=== PATIENT | male | born 1950 | race Caucasian/White ===

== ENCOUNTER 2022-11-22 05:35 | Inpatient (IN) | payer MEDICARE, BC ==
[2022-11-20 13:25] LABS: BASOPHILS # (AUTO) 0.1 X10'3 (0-0.2); BASOPHILS % (AUTO) 0.5 % (0-1); EOSINOPHILS # (AUTO) 0.2 X10'3 (0-0.9); EOSINOPHILS % (AUTO) 2.4 % (0-6); LYMPHOCYTES # (AUTO) 1.4 X10'3 (1.1-4.8); LYMPHOCYTES % (AUTO) 13.9 % (21-51); MEAN CORPUSCULAR HEMOGLOBIN 29.6 PG (27.0-31.0); MEAN CORPUSCULAR HGB CONC 33.5 g/dL (33.0-36.5); MEAN CORPUSCULAR VOLUME 88.4 FL (78-98); MEAN PLATELET VOLUME 7.3 FL (7.4-10.4); MONOCYTES % (AUTO) 9.9 % (2-12); NEUTROPHILS # (AUTO) 7.5 X10'3 (1.8-7.7); NEUTROPHILS % (AUTO) 73.3 % (42-75); PRE OP HEMATOCRIT 42.6 % (42.0-52.0); PRE OP HEMOGLOBIN 14.3 g/dL (14.0-17.9); PRE OP PLATELET COUNT 208 X10'3 (140-440); RED BLOOD COUNT 4.82 X10'6 (4.70-6.10); RED CELL DISTRIBUTION WIDTH 13.7 % (11.5-14.5)
[2022-11-20 13:42] LABS: PRE OP PROTIME 10.6 SECONDS (9.0-12.0)
[2022-11-20 13:52] LABS: ALBUMIN 3.6 G/DL (3.4-5.0); ALBUMIN/GLOBULIN RATIO 1.2 (1.1-1.5); ALKALINE PHOSPHATASE 78 IU/L (46-116); BLOOD UREA NITROGEN 15 MG/DL (7-18); CALCIUM 8.7 MG/DL (8.5-10.1); CHLORIDE 104 MMOL/L (99-107); CREATININE 0.94 MG/DL (0.60-1.10); PRE OP ALT 40 U/L (30-65); PRE OP ANION GAP 7 (8-16); PRE OP AST 21 U/L (10-37); PRE OP BILIRUB, TOTAL 0.4 MG/DL (0.0-1.0); PRE OP GLUCOSE 142 MG/DL (70-104); PRE OP POTASSIUM 4.3 MMOL/L (3.4-5.1); PRE OP SODIUM 138 MMOL/L (135-145); TOTAL CARBON DIOXIDE 26.9 MMOL/L (24-32); TOTAL PROTEIN 6.7 G/DL (6.4-8.2); eGFR 79 ML/MIN
[2022-11-22] VITALS (31 sets, daily range): BP systolic 109–164; BP diastolic 48–87
[~2022-11-22] VITALS: Ht 177.8 cm; Wt 113.7 kg
[~2022-11-22 05:35] MED LIST: ALFU10TA PO; ASPI-611 PO; FINA5TAB11 PO; LISI5TAB22 PO; ROSU40TA PO; ceFAZolin inj. 2,000 MG in dextrose 5%-water 100 ML IV ONE; famotidine 20mg tablet PO ONE; metoprolol tartrate 12.5mg (1/2 tablet) PO ONE; nitroPRUSSIDE 0.2mg/mL in NS 250 ML IV SCH; phenylephrine inj 50 MG in normal saline 250ml IV solN IV SCH; ringers solution, lacted 1,000 ML IV SCH
[2022-11-22] MEDS ORDERED: heparin 10,000 units/1 ML INJ ONE (06:42)
[2022-11-22] MEDS ORDERED: LIDOcaine 1% 30ml preserv. free vial ONE (06:48)
--- NOTE | 2022-11-22 07:25 | NUR ---
ROMINA RENDON NOTIFIED OF PT HR OF 60. VERBAL ORDER RECEIVED TO HOLD METOPROLOL.
[2022-11-22] MEDS ORDERED: midazolam 1 mg/ML 2ml injection ONE (07:26)
[2022-11-22] MEDS ORDERED: fentaNYL /PF 50mcg/ml 5ml ampule ONE (07:27)
[2022-11-22] MEDS ORDERED: ondansetron/PF 4mg/2ml inj IV PRN ×2 (07:40→09:35)
[2022-11-22] MEDS ORDERED: acetaminophen 1,000mg/100ml IV 100 ML IV PRN (07:40)
[2022-11-22] MEDS ORDERED: morphine 2 MG/ML inj. syringe IV PRN (07:40)
[2022-11-22] MEDS ORDERED: meperidine/PF 25mg/ml syringe IV PRN ×3 (07:40)
[2022-11-22] MEDS ORDERED: proCHLORperazine 10 MG/2 ml inj IV PRN (07:40)
[2022-11-22] MEDS ORDERED: ketorolac trometh. 30mg/ml inj. IV ONE (07:40)
[2022-11-22] MEDS ORDERED: ringers solution, lacted 1,000 ML IV SCH (07:40)
[2022-11-22] MEDS ORDERED: labetalol 20mg/4ml (5mg/ml) syringe IV PRN (07:40)
[2022-11-22] MEDS ORDERED: LIDOcaine 1% (10mg/ml) 2ml vial ONE (07:51)
[2022-11-22] MEDS ORDERED: sevoflurane 250ml liquid IH ONE (07:57)
[2022-11-22] MEDS ORDERED: ondansetron/PF 4mg/2ml inj ONE (08:29)
[2022-11-22] MEDS ORDERED: LIDOcaine 2% (20mg/ml) 5ml vial ONE (08:29)
[2022-11-22] MEDS ORDERED: propofol inj 20 ML IV ONE (08:29)
[2022-11-22] MEDS ORDERED: ePHEDrine 50MG/ML INJ. ONE (08:29)
[2022-11-22] MEDS ORDERED: rocuronium 10mg/ml inj IV ONE (08:29)
[2022-11-22] MEDS ORDERED: LIDOcaine 1%/PF 5ML 10 MG/ML VIAL ONE (08:29)
[2022-11-22] MEDS ORDERED: 0.9 % SODIUM CHLORIDE 10 ML VIAL ONE (08:29)
[2022-11-22] MEDS ORDERED: dexamethasone sod phosphate 4mg/ml inj. ONE (08:29)
[2022-11-22] MEDS ORDERED: protamine sulfate 10mg/ml inj. ONE (08:53)
[2022-11-22] MEDS ORDERED: neostigmine methylsulfate 1 MG/ML 10ml vial ONE (09:21)
[2022-11-22] MEDS ORDERED: glycopyrrolate 0.2mg/ml inj ONE (09:21)
[2022-11-22] MEDS ORDERED: heparin 1,000unit/ml 10ml vial 10 ML ONE (09:21)
[2022-11-22] MEDS ORDERED: labetalol 20mg/4ml (5mg/ml) syringe IV ONE (09:25)
[2022-11-22] MEDS ORDERED: albuterol 2.5 MG/3 ML nebule NEB PRN (09:35)
[2022-11-22] MEDS ORDERED: metoclopramide 5 mg/ml inj IV PRN (09:35)
[2022-11-22] MEDS ORDERED: naloxone 0.4 mg/ml inj IV PRN (09:35)
--- NOTE | 2022-11-22 09:38 | NUR ---
Received from OR via ICU BED , accompanied by Anesthesiologist LAVINIA and report given by Anesthesiolgist. PATIENT WITH WILLIE TO LEFT NECK THAT IS CDI. PAIN OF 7-10...WILL MEDICATE. PATIENT WITH EQUAL PUSH PULLS, INSURANCE VERIFY REP, SMILE IS SYMMETRICAL. 18G PIV IN IN RIGHT UE WELL ART LINE TO RIGHT UE. 10L [place] WITH 97% SATURATIONS. WILL TITRATE DRIPS AND AIM FOR 120-140 SBP PER SYLVIE VISION TEACHER. Addendum: 11/22/22 at 0947 by Alon Crisostomo RN, RN Amended: Links added.
[2022-11-22] MEDS: hydrALAZINE 20mg/ml inj. IV PRN ×2 (09:55→12:45)
[2022-11-22] MEDS: morphine 4 MG/ML inj SYRINge IV PRN ×2 (09:56→10:13)
--- NOTE | 2022-11-22 10:44 | NUR ---
PUSH PULLS ALL EQUAL. TONGUE MIDLINE AND SMILE STILL SYMMETRICAL. PAIN MUCH MORE TOLERABLE. Addendum: 11/22/22 at 1045 by Alon Crisostomo RN, RN Amended: Links added.
--- NOTE | 2022-11-22 11:18 | NUR ---
REPORT GIVEN AND ALL QUESTIONS ANSWERED. PATIENT TRANSFERRED TO ICU. LABELED BELONGINGS PRESENT AND DELIVERED TO ROOM. RN PRESENT ALL CRITERIA FOR TRANSFER TO THE ICU FLOOR HAS BEEN ACHIEVED. VSS. PAIN AT A TOLERABLE LEVEL. BED LOW, CALL LIGHT PRESENT AND 2 RAILS DOWN. RN CHARLY PRESENT AND ACCEPTING CARE OF PATIENT.ON E LABELED BAG OF BELONGINGS SENT WITH PATIENT. Addendum: 11/22/22 at 1130 by Alon Crisostomo RN RN Amended: Links added.
--- NOTE | 2022-11-22 11:20 | NUR ---
Pt received post op from left carotid enterectomy Awake and alert moving all extremities No neuro deficit noted Sl HTN on nipride gtt J P drain with sm amt of sero sang drainage Left neck soft no hematoma noted
--- NOTE | 2022-11-22 12:00 | NUR ---
Nipride infusing to keep sbp less then 160 sys trying to wean
[2022-11-22] MEDS ORDERED: nitroPRUSSIDE 0.2mg/mL in NS 250 ML IV SCH (12:05)
[2022-11-22] MEDS: HYDROcodone/acetaminophen 10/325mg tab PO PRN ×3 (12:44→23:58)
--- NOTE | 2022-11-22 12:44 | NUR ---
med with norco for c/o of headache Able to wean nipride gtt down hero full liq diet Left neck soft min drainage in WILLIE Neuro [facility]
--- NOTE | 2022-11-22 14:11 | NUR ---
Zack gtt off Headache gone Visiting with Neuro [facility] TROYS
--- NOTE | 2022-11-22 16:38 | NUR ---
Nakia d/c per Dr Contreras VSS Pt c/o of headache Neuro checks WNL
[2022-11-22] MEDS: ceFAZolin 1GM/D5W- ADD-VANTAGE 50 ML IV SCH (16:57)
[2022-11-22] MEDS ORDERED: lisinopril 5mg tablet PO ONE (17:15)
--- NOTE | 2022-11-22 17:29 | NUR ---
Med with htn med for sys 170 Also med for sl headache Neuro [facility]
--- NOTE | 2022-11-22 18:00 | NUR ---
UP TO CHAIR AND GEOFFREY WELL b/P WITHIN NORMAL LIMITS nO NEURO [facility] NOTED
--- NOTE | 2022-11-22 18:38 | NUR ---
rEPORT GIVEN TO ON COMING SHIFT
[2022-11-22] MEDS ORDERED: finasteride 5mg tablet PO SCH (21:00)
[2022-11-22] MEDS ORDERED: tamsulosin 0.4mg capsule PO SCH (21:00)
[2022-11-23] VITALS (10 sets, daily range): BP systolic 120–146; BP diastolic 53–76
[2022-11-23] MEDS: ceFAZolin 1GM/D5W- ADD-VANTAGE 50 ML IV SCH ×2 (01:12→08:18)
[2022-11-23 06:12] LABS: BASOPHILS % (AUTO) 0.1 % (0-1); EOSINOPHILS % (AUTO) 0 % (0-6); HEMOGLOBIN 12.9 g/dl (14.0-17.9); LYMPHOCYTES # (AUTO) 0.9 X10'3 (1.1-4.8); LYMPHOCYTES % (AUTO) 6.8 % (21-51); MEAN CORPUSCULAR HEMOGLOBIN 29.1 PG (27.0-31.0); MEAN CORPUSCULAR HGB CONC 33.1 g/dL (33.0-36.5); MEAN PLATELET VOLUME 7.4 FL (7.4-10.4); MONOCYTES # (AUTO) 1.1 X10'3 (0-0.9); MONOCYTES % (AUTO) 8.3 % (2-12); NEUTROPHILS # (AUTO) 11.2 X10'3 (1.8-7.7); NEUTROPHILS % (AUTO) 84.8 % (42-75); PLATELET COUNT 221 X10'3 (140-440); RED BLOOD COUNT 4.44 X10'6 (4.70-6.10); RED CELL DISTRIBUTION WIDTH 13.5 % (11.5-14.5); WHITE BLOOD COUNT 13.2 X10'3 (4.5-11.0)
[2022-11-23 06:22] LABS: ANION GAP 7 (8-16); BLOOD UREA NITROGEN 18 MG/DL (7-18); BUN/CREATININE RATIO 18.9 (5.4-32.0); CALCIUM 8.4 MG/DL (8.5-10.1); CHLORIDE 104 MMOL/L (99-107); CREATININE 0.95 MG/DL (0.60-1.10); GLUCOSE 143 MG/DL (70-104); POTASSIUM 4.2 MMOL/L (3.5-5.1); SODIUM 137 MMOL/L (135-145); TOTAL CARBON DIOXIDE 25.6 MMOL/L (24-32); eGFR 78 ML/MIN
[2022-11-23] MEDS ORDERED: CLOP-32 PO (07:47)
[2022-11-23] MEDS ORDERED: lisinopril 5mg tablet PO SCH (08:00)
[2022-11-23] MEDS ORDERED: aspirin 81mg, enteric-coated 1 TAB TABLET.DR PO SCH (08:00)
[2022-11-23] MEDS ORDERED: atorvastatin 20mg tablet PO SCH (08:00)
[2022-11-23] MEDS ORDERED: clopidogrel 75mg tablet PO SCH (08:00)
--- NOTE | 2022-11-23 10:03 | NUR ---
d/c instructions reviewed with patient, pt verbalized all understanding. all belongings have been returned.
== END 2022-11-23 10:30 | disposition home or self-care (01) | DRG 39 ==
LOC: UNDOADMIN 05:35 → PAS IN 05:35 → CICU 2S 07:46
PROVIDERS: ADMIT Thoracic Surgery (Cardiothoracic Vascular Surgery); ATTEND Thoracic Surgery (Cardiothoracic Vascular Surgery)
PROC: 03UL0KZ Supplement Left Internal Carotid Artery with Nonautologous Tissue Substitute, Open Approach (ICD-10-PCS; 2022-11-22)
PROC: 5A09357 Assistance with Respiratory Ventilation, Less than 24 Consecutive Hours, Continuous Positive Airway Pressure (ICD-10-PCS; 2022-11-22)
PROC: 03CJ0ZZ Extirpation of Matter from Left Common Carotid Artery, Open Approach (ICD-10-PCS; 2022-11-22)
PROC: 03CN0ZZ Extirpation of Matter from Left External Carotid Artery, Open Approach (ICD-10-PCS; 2022-11-22)
PROC: 03UN0KZ Supplement Left External Carotid Artery with Nonautologous Tissue Substitute, Open Approach (ICD-10-PCS; 2022-11-22)
PROC: 03UJ0KZ Supplement Left Common Carotid Artery with Nonautologous Tissue Substitute, Open Approach (ICD-10-PCS; 2022-11-22)
PROC: 03CL0ZZ Extirpation of Matter from Left Internal Carotid Artery, Open Approach (ICD-10-PCS; principal; 2022-11-22 07:57)
DX: I65.22 Occlusion and stenosis of left carotid artery (principal); E78.5 Hyperlipidemia, unspecified; G47.30 Sleep apnea, unspecified; I10 Essential (primary) hypertension; I25.10 Atherosclerotic heart disease of native coronary artery without angina pectoris; Z95.5 Presence of coronary angioplasty implant and graft
CPT/HCPCS: 36415; 71045; 71046; 80048; 80053; 82948; 85025; 85610; 85730; 86885; 86900; 86901; 87081; 93005; A4615; A4618; A6250; A6258; A6402; A6449; A7000; C1768; G0378; J0360; J0690; J1100; J1644; J1885; J2250; J2270; J2370; J2405; J2704; J2710; J2720; J3010; J3490; J7050; J7060; J7120